=== PATIENT | female | born 1990 | race African-American/Black ===

== ENCOUNTER 2024-03-01 04:33 | Emergency (ER) | payer OTHER ==
[~2024-03-01] VITALS: Ht 154.9 cm; Wt 82.0 kg
[2024-03-01 04:49] VITALS: TEMP 97.5; O2SAT 99
[2024-03-01] MEDS: KETOROLAC 15MG/ML VIAL IM ONE (05:27)
[2024-03-01 05:31] VITALS: BP 141/98; PULSE 76; RESP 14; O2SAT 100
[2024-03-01] MEDS ORDERED: TOPUD MT (09:50)
[2024-03-01] MEDS ORDERED: IBUP-1523 MT (09:50)
== END 2024-03-01 10:16 | disposition home or self-care (01) ==
LOC: ER 04:33
DX: S46.912A Strain of unspecified muscle, fascia and tendon at shoulder and upper arm level, left arm, initial encounter (principal); Z90.710 Acquired absence of both cervix and uterus; V43.92XA Unspecified car occupant injured in collision with other type car in traffic accident, initial encounter; Y93.89 Activity, other specified; Y92.89 Other specified places as the place of occurrence of the external cause; Y99.8 Other external cause status
CPT/HCPCS: 73060; 73110; 73564; 96372; 99284; J1885; Z7610